=== PATIENT | female | born 1935 | race Caucasian/White ===

== ENCOUNTER 2019-04-13 05:22 | Emergency (ER) | payer MEDICARE ==
[~2019-04-13] VITALS: Ht 157.5 cm; Wt 74.8 kg
[2019-04-13 05:41] LABS: BASOPHILS ABSOLUTE AUTO 0.05 K/mm3 (0.00-0.23); BASOPHILS PERCENT AUTO 1 % (0-2); EOSINOPHILS ABSOLUTE AUTO 0.39 K/mm3 (0.00-0.68); EOSINOPHILS PERCENT AUTO 4 % (0-6); Hematocrit 46.5 % (33.0-51.0); Hemoglobin 15.8 g/dL (11.5-16.0); IMMATURE GRAN ABSOLUTE AUTO 0.01 K/mm3 (0.00-0.10); IMMATURE GRAN PERCENT AUTO 0 % (0-1); LYMPHOCYTES ABSOLUTE AUTO 3.09 K/mm3 (0.84-5.20); LYMPHOCYTES PERCENT AUTO 32 % (21-46); MONOCYTES ABSOLUTE AUTO 0.78 K/mm3 (0.16-1.47); MONOCYTES PERCENT AUTO 8 % (4-13); Mean Corpuscular HGB 31.5 pg (26.0-34.0); Mean Corpuscular Volume 93 fL (80-100); Mean Platelet Volume 11.3 fL (9.1-12.4); NEUTROPHILS PERCENT AUTO 56 % (41-73); Platelet Count 219 K/mm3 (150-400); RDW Coefficient Variation 13.2 % (11.7-14.2); RDW Standard Deviation 44.8 fL (35.1-46.3); Red Blood Cell Count 5.01 M/mm3 (3.80-5.20); White Blood Cell Count 9.82 K/mm3 (4.00-11.30)
[2019-04-13] MEDS ORDERED: METF500 PO (06:01)
[2019-04-13] MEDS ORDERED: GLIP10 PO (06:01)
[2019-04-13] MEDS ORDERED: AMLO10 PO (06:02)
[2019-04-13] MEDS ORDERED: METO50 PO (06:02)
[2019-04-13] MEDS ORDERED: LISI20 PO (06:02)
[2019-04-13 06:04] LABS: Alanine Aminotransfer (ALT/SGP 20 U/L (12-78); Albumin, Blood 3.9 g/dL (3.4-5.0); Alk Phos 98 U/L (50-136); Anion Gap 9 mmol/L (6-16); Aspartate Aminotrans (AST/SGOT 17 U/L (12-37); Bilirubin, Total 0.8 mg/dL (0.1-1.0); Blood Urea Nitrogen 25 mg/dL (8-24); CO2, Blood 21 mmol/L (21-32); Calcium, Blood 9.3 mg/dL (8.5-10.1); Chloride, Blood 111 mmol/L (98-108); Creatinine, Blood 0.93 mg/dL (0.40-1.00); Glomerular Filtration Rate >60 (60-); Glucose, Blood 148 mg/dL (70-99); Magnesium, Blood 2.3 mg/dL (1.6-2.4); Potassium, Blood 3.8 mmol/L (3.5-5.5); Sodium, Blood 141 mmol/L (136-145); Total Protein, Blood 7.9 g/dL (6.4-8.2)
[2019-04-13 06:14] LABS: International Normalized Ratio 0.96; Prothrombin Time Results 10.3 Sec (9.7-11.5)
[2019-04-13] MEDS ORDERED: LEVSOD100 PO (06:17)
== END 2019-04-13 10:56 | disposition short-term general hospital (02) ==
LOC: ER 05:22
PROVIDERS: Emergency Medicine
DX: I48.91 Unspecified atrial fibrillation (principal); R51 Headache
CPT/HCPCS: 51702; 70450; 70496; 70498; 71045; 80053; 83735; 83880; 84484; 85025; 85610; 85730; 93005; 93010; 96365-59; 96366-59; 96375-59; 96376-59; 99285-25; J1885; J7030; Q9967

== ENCOUNTER 2020-03-11 19:52 | Observation (INO) | payer MEDICARE ==
[~2020-03-11] VITALS: Ht 157.5 cm; Wt 80.6 kg
[~2020-03-11 19:52] MED LIST: AMLO10 PO; GLIP10 PO; LEVSOD100 PO; LISI20 PO; METF500 PO; METO50 PO
[2020-03-11 20:55] LABS: BASOPHILS ABSOLUTE AUTO 0.07 K/mm3 (0.00-0.23); BASOPHILS PERCENT AUTO 1 % (0-2); EOSINOPHILS ABSOLUTE AUTO 0.27 K/mm3 (0.00-0.68); EOSINOPHILS PERCENT AUTO 3 % (0-6); Hematocrit 44.3 % (33.0-51.0); Hemoglobin 14.4 g/dL (11.5-16.0); IMMATURE GRAN ABSOLUTE AUTO 0.02 K/mm3 (0.00-0.10); IMMATURE GRAN PERCENT AUTO 0 % (0-1); LYMPHOCYTES ABSOLUTE AUTO 2.92 K/mm3 (0.84-5.20); LYMPHOCYTES PERCENT AUTO 28 % (21-46); MONOCYTES ABSOLUTE AUTO 0.83 K/mm3 (0.16-1.47); MONOCYTES PERCENT AUTO 8 % (4-13); Mean Corpuscular HGB 30.3 pg (26.0-34.0); Mean Corpuscular HGB Conc 32.5 g/dL (31.5-36.5); Mean Corpuscular Volume 93 fL (80-100); Mean Platelet Volume 12.5 fL (9.1-12.4); NEUTROPHILS ABSOLUTE AUTO 6.41 K/mm3 (1.96-9.15); NEUTROPHILS PERCENT AUTO 61 % (41-73); Platelet Count 209 K/mm3 (150-400); RDW Coefficient Variation 12.9 % (11.7-14.2); RDW Standard Deviation 44.4 fL (35.1-46.3); Red Blood Cell Count 4.75 M/mm3 (3.80-5.20); White Blood Cell Count 10.52 K/mm3 (4.00-11.30)
[2020-03-11 21:09] LABS: Alanine Aminotransfer (ALT/SGP 22 U/L (12-78); Albumin, Blood 3.6 g/dL (3.4-5.0); Albumin/Globulin Ratio 0.9 (0.8-1.8); Alk Phos 125 U/L (50-136); Anion Gap 7 mmol/L (6-16); Aspartate Aminotrans (AST/SGOT 19 U/L (12-37); Blood Urea Nitrogen 24 mg/dL (8-24); Bun/Creatinine Ratio 35.1 (12.0-20.0); CO2, Blood 23 mmol/L (21-32); Chloride, Blood 112 mmol/L (98-108); Creatinine, Blood 0.68 mg/dL (0.40-1.00); Globulin, Blood 3.8 g/dL (2.2-4.0); Glomerular Filtration Rate >60 (60-); Glucose, Blood 177 mg/dL (70-99); Potassium, Blood 4.5 mmol/L (3.5-5.5); Sodium, Blood 142 mmol/L (136-145); Total Protein, Blood 7.4 g/dL (6.4-8.2); Troponin I <0.015 ng/mL (0.000-0.040)
--- NOTE | 2020-03-12 02:42 | NUR ---
PT A/O X4. DENIES CHEST PAIN. PT HAS BACK SPASMS 7/10 PAIN. HEATING PAD OFFERED BUT IT DID NOT HELP. DR. RUSHING ORDERED IV DIAZEMPAM BID PRN. WILL ADMINISTER ONCE PHARMACY VARIFIES.
[2020-03-12] MEDS ORDERED: JARDIANCE10 MG PO (03:06)
[2020-03-12] MEDS ORDERED: ATORVASTATIN CA20 MG PO (03:07)
[2020-03-12] MEDS ORDERED: DIAZ5 PO (03:08)
[2020-03-12] MEDS ORDERED: ELIQUIS5 MG PO (03:08)
--- NOTE | 2020-03-12 06:40 | NUR ---
OUTREACH CONSULTANT SUMMARY PT NEW ADMIT TO UNIT AT 0104. A/O X4, PLEASANT AND COOPERATIVE. PT DENIES CHEST PAIN, HOWEVER DOES HAVE BACK SPASMS. MEDICATED WITH DIAZEPAM IV WHICH PT STATED DID NOT HELP. FLEXIRL PO GIVEN. ALLOWING TIME FOR THIS MEDICATION TO WORK. VSS. PER TELE PT IS IN A. FIB IN AVG 52, PT HAS HX OF A. FIB. APPEARS TO BE RESTING IN BED WITH EYES CLOSED. INDEPENDENT IN ROOM. DENIES DIZZINESS, NAUSEA, SOB. ROOM AIR. WILL REPORT TO ONCOMING RN.
--- NOTE | 2020-03-12 18:26 | NUR ---
SHIFT SUMMARY PT CONTINUES TO HAVE BRADYCARDIA T/O SHIFT. RUNNING IN THE 40-50S. AT 1730 PT CHANGED TO AFIB IN THE 80-90S. PT HAS DENIED CP T/O SHIFT. C/O BACK SPASMS. PT STATES VIDOCIN IS TREATING HER PAIN WELL. FENTANYL ONLY NEEDED ONCE THIS AM. PT IND TO BATHROOM T/O SHIFT. DENIES DIZINESS T/O SHIFT. NO OTHER ACUTE CHANGES IN ASSESSMENT AT THIS TIME. VS REVIEWED. WILL CONTINUE TO MONITOR UNTIL TURNOVER IS COMPLETE.
--- NOTE | 2020-03-13 03:53 | NUR ---
SHIFT SUMMARY PATIENT HAD NO ACUTE CHANGES OBSERVED. AXOX 3 AND INDEPENDENT IN THE ROOM. PIV REMAINS INTACT, SPOUTER REPORTS A-FIB AVERAGE 88. VSS/AFEBRILE. DENIES CHEST PAIN, SOB, AND N/V. ROOM AIR. ABLE TO SLEEP T/O SHIFT. COOPERATIVE WITH CARE. CALL LIGHT IN REACH. BED IN LOWEST POSITION. WILL CONTINUE TO MONITOR UNTIL DAY SHIFT NURSE ASSUMES CARE.
--- NOTE | 2020-03-13 04:44 | NUR ---
TELEMETRY EVENT: A-FIB 140-150; PATIENT REPORTS UP TO BATHROOM INDEPENDENTLY. BACK DOWN TO A-FIB 112. BACK IN BED RESTING. CALL LIGHT IN REACH.
[2020-03-13 05:36] LABS: BASOPHILS ABSOLUTE AUTO 0.06 K/mm3 (0.00-0.23); BASOPHILS PERCENT AUTO 1 % (0-2); EOSINOPHILS ABSOLUTE AUTO 0.37 K/mm3 (0.00-0.68); EOSINOPHILS PERCENT AUTO 4 % (0-6); Hematocrit 47.6 % (33.0-51.0); Hemoglobin 15.2 g/dL (11.5-16.0); IMMATURE GRAN ABSOLUTE AUTO 0.02 K/mm3 (0.00-0.10); IMMATURE GRAN PERCENT AUTO 0 % (0-1); LYMPHOCYTES ABSOLUTE AUTO 2.55 K/mm3 (0.84-5.20); LYMPHOCYTES PERCENT AUTO 25 % (21-46); MONOCYTES PERCENT AUTO 8 % (4-13); Mean Corpuscular HGB 30.8 pg (26.0-34.0); Mean Corpuscular HGB Conc 31.9 g/dL (31.5-36.5); Mean Corpuscular Volume 97 fL (80-100); Mean Platelet Volume 12.4 fL (9.1-12.4); NEUTROPHILS ABSOLUTE AUTO 6.48 K/mm3 (1.96-9.15); NEUTROPHILS PERCENT AUTO 63 % (41-73); Platelet Count 185 K/mm3 (150-400); RDW Coefficient Variation 12.9 % (11.7-14.2); RDW Standard Deviation 45.9 fL (35.1-46.3); Red Blood Cell Count 4.93 M/mm3 (3.80-5.20); White Blood Cell Count 10.28 K/mm3 (4.00-11.30)
[2020-03-13 05:54] LABS: Anion Gap 8 mmol/L (6-16); Blood Urea Nitrogen 24 mg/dL (8-24); Bun/Creatinine Ratio 32.3 (12.0-20.0); CO2, Blood 21 mmol/L (21-32); Calcium, Blood 9.4 mg/dL (8.5-10.1); Chloride, Blood 113 mmol/L (98-108); Creatinine, Blood 0.74 mg/dL (0.40-1.00); Glomerular Filtration Rate >60 (60-); Glucose, Blood 128 mg/dL (70-99); Potassium, Blood 4.3 mmol/L (3.5-5.5); Sodium, Blood 142 mmol/L (136-145)
[2020-03-13] MEDS ORDERED: ACET325 PO (11:10)
[2020-03-13] MEDS ORDERED: ASPI81CH PO (11:11)
[2020-03-13] MEDS ORDERED: LIDOCAINE1 EAC1 TOP (11:12)
--- NOTE | 2020-03-13 12:12 | NUR ---
PT TO DISCHARGE HOME AND FOLLOW UP WITH [facility] ON MONDAY. NO NEW MEDS. PT EDUCATED REGARDING FOLLOW UP [facility] APPOINTMENT. IV REMOVED AND PT DRESSED SELF. TAKEN DOWN TO CARE BY STAFF AND DROVE HER HOME.
== END 2020-03-13 11:38 | disposition home or self-care (01) ==
LOC: ER 19:52 → MEDS 19:53 → ER 03-12 00:39 → UNDODEPER 03-12 01:01 → MEDS 03-12 01:05 → ENPENDDIS 03-13 10:59 → MEDS 03-13 11:38
PROVIDERS: Emergency Medicine; Family Medicine; ADMIT Internal Medicine
DX: R07.9 Chest pain, unspecified (principal); E11.8 Type 2 diabetes mellitus with unspecified complications; E03.9 Hypothyroidism, unspecified; I10 Essential (primary) hypertension; Z79.01 Long term (current) use of anticoagulants; R00.1 Bradycardia, unspecified; I44.7 Left bundle-branch block, unspecified; K44.9 Diaphragmatic hernia without obstruction or gangrene; Z79.84 Long term (current) use of oral hypoglycemic drugs; Z86.73 Personal history of transient ischemic attack (TIA), and cerebral infarction without residual deficits
CPT/HCPCS: 36415; 71275; 80048; 80053; 82947; 84484; 85025; 93005; 93010; 93306; 96374; 96375; 96376; 99285-25; A9270; G0378; J2405; J3010; J3360; Q9967

== ENCOUNTER 2023-08-31 12:15 | Inpatient (IN) | payer MEDICARE ==
[~2023-08-31] VITALS: Ht 152.4 cm; Wt 61.4 kg
[~2023-08-31 12:15] MED LIST changes: +ACET325 PO; -AMLO10 PO; +AMLO5 PO; +ASPI81CH PO; +ATORVASTATIN CA20 MG PO; +DIAZ5 PO; +ELIQUIS5 MG PO; +JARDIANCE10 MG PO; +LIDOCAINE1 EAC1 TOP; +METO25ER PO
[2023-08-31] MEDS ORDERED: Metoprolol Succinate 25 MG TABCR PO ONE (13:05)
[2023-08-31] MEDS ORDERED: Metoprolol Tartrate 1 MG/ML 5 ML VIAL IV ONE (13:05)
[2023-08-31] MEDS ORDERED: NS 500 ML IV SCH (13:10)
[2023-08-31 13:16] LABS: BASOPHILS ABSOLUTE AUTO 0.03 K/mm3 (0.00-0.23); BASOPHILS PERCENT AUTO 0 % (0-2); EOSINOPHILS ABSOLUTE AUTO 0.01 K/mm3 (0.00-0.68); EOSINOPHILS PERCENT AUTO 0 % (0-6); Hematocrit 39.4 % (33.0-51.0); IMMATURE GRAN ABSOLUTE AUTO 0.04 K/mm3 (0.00-0.10); IMMATURE GRAN PERCENT AUTO 0 % (0-1); LYMPHOCYTES ABSOLUTE AUTO 1.06 K/mm3 (0.84-5.20); LYMPHOCYTES PERCENT AUTO 9 % (21-46); MONOCYTES ABSOLUTE AUTO 0.63 K/mm3 (0.16-1.47); MONOCYTES PERCENT AUTO 6 % (4-13); Mean Corpuscular Volume 100 fL (80-100); NEUTROPHILS ABSOLUTE AUTO 9.46 K/mm3 (1.96-9.15); NEUTROPHILS PERCENT AUTO 84 % (41-73); Platelet Count 169 K/mm3 (150-400); RDW Coefficient Variation 12.7 % (11.7-14.2); RDW Standard Deviation 47.5 fL (35.1-46.3); Red Blood Cell Count 3.94 M/mm3 (3.80-5.20); White Blood Cell Count 11.23 K/mm3 (4.00-11.30)
[2023-08-31 13:26] LABS: Albumin, Blood 3.5 g/dL (3.4-5.0); Albumin/Globulin Ratio 1.1 (0.8-1.8); Bilirubin, Total 1.2 mg/dL (0.1-1.0); Bun/Creatinine Ratio 47.3 (12.0-20.0); Calcium, Blood 9.3 mg/dL (8.5-10.1); Creatinine, Blood 0.42 mg/dL (0.40-1.00); Globulin, Blood 3.1 g/dL (2.2-4.0); Total Protein, Blood 6.6 g/dL (6.4-8.2)
[2023-08-31] MEDS ORDERED: Metoprolol Tartrate 1 MG/ML 5 ML VIAL IV PRN (14:05)
[2023-08-31] MEDS ORDERED: Diltiazem HCl 5 MG / ML 5ML Vial IV ONE (15:00)
[2023-08-31] MEDS ORDERED: Lactated Ringer's 1,000 ML IV SCH (15:50)
[2023-08-31] MEDS ORDERED: NS 250 ML IV PRN (16:30)
[2023-08-31 17:28] VITALS: BP 106/69
[2023-08-31 18:00] VITALS: BP 98/60
[2023-08-31 18:15] VITALS: BP 101/64
--- NOTE | 2023-08-31 18:17 | NUR ---
PT IS A NEW ADMIT THIS EVENING. SHE CAME TO PCU ON A DILTIZEM GTT AT 15. HR HR WAS TOUCH DOWN TO THE 80'S AND I WAS ABLE TO TITRAITE HER TO 5MG/ML. BP STABLE. SP02 >90% ONRA. THE PT HAS NO COMPLAINTS, AND IS VERY PLEASENT AND COOPERATIVE. SHE DID COME TO PCU WITH A KHANNA, AND IT IS DRAINING PATENT TO GRAVITY. IT WAS PLACED IN THE ER PRIOR TO ARRIVING TO PCU03. THE PT DOES HAVE A DARK, FIRM, MASS NEAR HER RECTUM. DR. WEINER EXAMINED IT AT BEDSIDE; PHOTOS IN THE CHART. THE PT'S BUTTOCKS HAS A STAGE ON PRESSURE SORE AND A MEPILEX WAS PLACED. [facility] D/T DM2. FAMILY WAS AT BEDSIDE AND UPDATED ON CARE. SEE NOTES FOR UPDATES.
[2023-08-31] MEDS ORDERED: Diazepam 5 MG Tab PO PRN (18:45)
[2023-08-31] MEDS ORDERED: Metoprolol Succinate 25 MG TABCR PO SCH (21:00)
[2023-08-31] MEDS ORDERED: Insulin Human Lispro 100 Units/ML 3ML Syringe SC SCH (21:00)
[2023-08-31] MEDS ORDERED: Atorvastatin 40 MG Tab PO SCH (21:00)
[2023-09-01] VITALS (11 sets, daily range): BP systolic 90–122; BP diastolic 46–93
--- NOTE | 2023-09-01 05:29 | NUR ---
SHIFT SUMMARY: NO ACUTE CHANGES OVERNIGHT; VSS THROUGHOUT THE SHIFT. PT A&O X 4, PLEASANT AND COOPERATIVE WITH CARE; PT REQUIRING 1 PERSON ASSIST WITH Q2HR TURNS. PT ON RA, LUNGS CLEAR, SPO2 92<, AND DENIES SOB. AFIB ON MONITOR WITH HR 80-100'S; CARDIZEM GTT TURNED OFF THIS SHIFT. PT DENEIS CHEST PAIN OR ANY OTHER PAIN COMPLAINTS AT THIS TIME. PT TOLERATING PO INTAKE. KHANNA PATENT AND DRAINING TO GRAVITY; AROUND 300 ML OUTOUT, URINE YELLOW, CLEAR. NGO IN BED, HELPS WITH TURNS. PIV TO RFA AND LAC THAT ARE SALINE LOCKED. BED LOWERED, CALL LIGHT IN REACH.
[2023-09-01 05:36] LABS: BASOPHILS ABSOLUTE AUTO 0.05 K/mm3 (0.00-0.23); BASOPHILS PERCENT AUTO 1 % (0-2); EOSINOPHILS ABSOLUTE AUTO 0.14 K/mm3 (0.00-0.68); EOSINOPHILS PERCENT AUTO 1 % (0-6); Hematocrit 37.9 % (33.0-51.0); Hemoglobin 12.3 g/dL (11.5-16.0); IMMATURE GRAN ABSOLUTE AUTO 0.02 K/mm3 (0.00-0.10); IMMATURE GRAN PERCENT AUTO 0 % (0-1); LYMPHOCYTES ABSOLUTE AUTO 1.82 K/mm3 (0.84-5.20); LYMPHOCYTES PERCENT AUTO 17 % (21-46); MONOCYTES ABSOLUTE AUTO 0.83 K/mm3 (0.16-1.47); MONOCYTES PERCENT AUTO 8 % (4-13); Mean Corpuscular HGB 33.1 pg (26.0-34.0); Mean Corpuscular HGB Conc 32.5 g/dL (31.5-36.5); Mean Corpuscular Volume 102 fL (80-100); Mean Platelet Volume 12.4 fL (9.1-12.4); NEUTROPHILS ABSOLUTE AUTO 7.79 K/mm3 (1.96-9.15); NEUTROPHILS PERCENT AUTO 73 % (41-73); Platelet Count 154 K/mm3 (150-400); RDW Standard Deviation 48.8 fL (35.1-46.3); Red Blood Cell Count 3.72 M/mm3 (3.80-5.20); White Blood Cell Count 10.65 K/mm3 (4.00-11.30)
[2023-09-01 06:21] LABS: Albumin, Blood 2.9 g/dL (3.4-5.0); Albumin/Globulin Ratio 1.1 (0.8-1.8); Bilirubin, Total 1.4 mg/dL (0.1-1.0); Bun/Creatinine Ratio 47.4 (12.0-20.0); Calcium, Blood 8.9 mg/dL (8.5-10.1); Creatinine, Blood 0.51 mg/dL (0.40-1.00); Globulin, Blood 2.6 g/dL (2.2-4.0); Potassium, Blood 3.6 mmol/L (3.5-5.5); Total Protein, Blood 5.5 g/dL (6.4-8.2)
[2023-09-01] MEDS ORDERED: AmLODIPine Besylate 5 MG Tab PO SCH (09:00)
[2023-09-01] MEDS ORDERED: Lisinopril 20 MG Tab PO SCH (09:00)
[2023-09-01] MEDS ORDERED: Levothyroxine Sodium 0.15 MG Tab PO SCH (09:00)
[2023-09-01] MEDS ORDERED: NS 1,000 ML IV ONE (10:15)
[2023-09-01] MEDS ORDERED: Potassium Chloride 20 MEQ TabCR PO ONE (10:15)
--- NOTE | 2023-09-01 14:45 | NUR ---
DR. ROOT ROUNDED AT ABOUT 0930. SEE NEW ORDER FOR IV FLUIDS, HOME DOSE METOPROLOL AND ORAL POTASSIUM.
--- NOTE | 2023-09-01 17:03 | NUR ---
SUMMARY: PT ADMITTED WITH AFIB, RVR. PT A/O, VSS TONIGHT. HR CURRENTLY LOW 100'S, A FLUTTER.
[2023-09-01] MEDS ORDERED: NS 1,000 ML IV SCH ×3 (17:25→18:55)
--- NOTE | 2023-09-01 18:37 | NUR ---
AT ABOUT 1714 PT BP 90/72 AND HR 134. PT ASYMPTOMATIC. DR. ROOT NOTIFIED, SEE NEW ORDER FOR NS AT 100ML/HR. DR. ROOT ALSO INSTRUCTED NOT TO GIVE IV LOPRESSOR AT THIS TIME. PT TO RECEIVE EVENING PO DOSE OF TOPROL XL.
--- NOTE | 2023-09-01 18:43 | NUR ---
SUMMARY: PT ADMITTED FOR AFIB, RVR. A/O TODAY. 1L NS INFUSED TODAY, KHANNA DC'D AND PT IS VOIDING. UP WITH SBA, FWW. PT SAT UP FOR EACH MEAL TODAY. CURRENT HR 114, A FLUTTER. SEE PREVIOUS NOTE. PT HAS DENIED CP, SOB TODAY. BLOOD SUGARS STABLE. REPORT PASSED TO SAM MATT.
[2023-09-01] MEDS ORDERED: Metoprolol Succinate 25 MG TABCR PO SCH (21:00)
[2023-09-02] VITALS: BP 103/47
[2023-09-02 00:14] VITALS: BP 124/57
[2023-09-02 03:50] VITALS: BP 125/65
[2023-09-02 04:18] LABS: BASOPHILS ABSOLUTE AUTO 0.04 K/mm3 (0.00-0.23); BASOPHILS PERCENT AUTO 1 % (0-2); EOSINOPHILS ABSOLUTE AUTO 0.24 K/mm3 (0.00-0.68); EOSINOPHILS PERCENT AUTO 4 % (0-6); Hematocrit 36.9 % (33.0-51.0); Hemoglobin 11.9 g/dL (11.5-16.0); IMMATURE GRAN ABSOLUTE AUTO 0.02 K/mm3 (0.00-0.10); IMMATURE GRAN PERCENT AUTO 0 % (0-1); LYMPHOCYTES ABSOLUTE AUTO 1.66 K/mm3 (0.84-5.20); LYMPHOCYTES PERCENT AUTO 24 % (21-46); MONOCYTES ABSOLUTE AUTO 0.67 K/mm3 (0.16-1.47); MONOCYTES PERCENT AUTO 10 % (4-13); Mean Corpuscular HGB 33.6 pg (26.0-34.0); Mean Corpuscular HGB Conc 32.2 g/dL (31.5-36.5); Mean Corpuscular Volume 104 fL (80-100); NEUTROPHILS ABSOLUTE AUTO 4.31 K/mm3 (1.96-9.15); NEUTROPHILS PERCENT AUTO 62 % (41-73); Platelet Count 132 K/mm3 (150-400); RDW Coefficient Variation 13.1 % (11.7-14.2); RDW Standard Deviation 49.9 fL (35.1-46.3); Red Blood Cell Count 3.54 M/mm3 (3.80-5.20); White Blood Cell Count 6.94 K/mm3 (4.00-11.30)
[2023-09-02 04:49] LABS: Albumin, Blood 2.8 g/dL (3.4-5.0); Bun/Creatinine Ratio 47.3 (12.0-20.0); Calcium, Blood 8.5 mg/dL (8.5-10.1); Creatinine, Blood 0.51 mg/dL (0.40-1.00); Globulin, Blood 2.8 g/dL (2.2-4.0); Potassium, Blood 3.8 mmol/L (3.5-5.5); Total Protein, Blood 5.6 g/dL (6.4-8.2)
--- NOTE | 2023-09-02 05:00 | NUR ---
END OF SHIFT NOTE: NO ACUTE OVERNIGHT EVENTS. PT A/OX4 W/ BRIEF EPISODES OF CONFUSION IMMEDIATELY UPON WAKING. ABLE TO BE REORIENTED EASILY. VSS. HR 110-120'S AT START OF SHIFT, DOWN TO 70-90'S THIS AM. BP STABLE, MAP >65. SPO2 >90% ON RA WHILE AWAKE, 2-3L VIA NC WHILE ASLEEP. UP TO BSC TO VOID W/ 1P ASSIST. ASSISTED W/ REPOSITIONING T/O SHIFT. NO OTHER NEEDS AT THIS TIME. CALL LIGHT IN REACH. WILL REPORT TO ONCOMING RN.
[2023-09-02 07:41] VITALS: BP 117/76
[2023-09-02 12:22] VITALS: BP 127/103
--- NOTE | 2023-09-02 12:31 | NUR ---
discharge summary Pt a&ox4. vss. Pt denies pain. Discharge recommendations reviewed w/ pt and family. Discharge medication changes reviewed w/ pt and family. Family verbalized understanding. Medications faxed to [email or web address] per pt request. Iv's removed. Pt helped dress. Pt wheeled w/ belongings to family's private vehicle.
== END 2023-09-02 12:20 | disposition home health service (06) | DRG 309 ==
LOC: ER 12:15 → PCU 12:16
PROVIDERS: Hospitalist; Internal Medicine; Student in an Organized Health Care Education/Training Program; ADMIT Family Medicine
DX: I48.19 Other persistent atrial fibrillation (principal); I69.954 Hemiplegia and hemiparesis following unspecified cerebrovascular disease affecting left non-dominant side; M62.82 Rhabdomyolysis; I48.92 Unspecified atrial flutter; W18.30XA Fall on same level, unspecified, initial encounter; I10 Essential (primary) hypertension; E78.5 Hyperlipidemia, unspecified; Z79.01 Long term (current) use of anticoagulants; Z79.84 Long term (current) use of oral hypoglycemic drugs; Z79.890 Hormone replacement therapy; Z79.899 Other long term (current) drug therapy
CPT/HCPCS: 36415; 51702; 70450; 71045; 73502; 80053; 82550; 82947; 83735; 85025; 93005; 93010; 96361; 96365; 96366; 96375; 96376; 97161; 97530; 99285-25; A9270; G0378; J7030; J7120

== ENCOUNTER 2023-09-24 13:20 | Inpatient (IN) | payer MEDICARE ==
[~2023-09-24] VITALS: Ht 157.5 cm; Wt 59.9 kg
[~2023-09-24 13:20] MED LIST changes: +ATOR40TA PO; -ATORVASTATIN CA20 MG PO; +GLUCOPHAGE1000 M1 PO; -LEVSOD100 PO; +LEVSOD150 PO; -METF500 PO
[2023-09-24] MEDS ORDERED: Diltiazem HCl 5 MG / ML 5ML Vial IV ONE (14:15)
[2023-09-24] MEDS ORDERED: CARVEDILOL6.25 MG PO (14:21)
[2023-09-24 15:17] LABS: BASOPHILS ABSOLUTE AUTO 0.03 K/mm3 (0.00-0.23); BASOPHILS PERCENT AUTO 0 % (0-2); EOSINOPHILS ABSOLUTE AUTO 0.09 K/mm3 (0.00-0.68); EOSINOPHILS PERCENT AUTO 1 % (0-6); Hematocrit 40.2 % (33.0-51.0); Hemoglobin 13.1 g/dL (11.5-16.0); IMMATURE GRAN ABSOLUTE AUTO 0.02 K/mm3 (0.00-0.10); IMMATURE GRAN PERCENT AUTO 0 % (0-1); LYMPHOCYTES ABSOLUTE AUTO 1.55 K/mm3 (0.84-5.20); LYMPHOCYTES PERCENT AUTO 21 % (21-46); MONOCYTES ABSOLUTE AUTO 0.44 K/mm3 (0.16-1.47); MONOCYTES PERCENT AUTO 6 % (4-13); Mean Corpuscular HGB Conc 32.6 g/dL (31.5-36.5); Mean Corpuscular Volume 101 fL (80-100); Mean Platelet Volume 11.1 fL (9.1-12.4); NEUTROPHILS ABSOLUTE AUTO 5.18 K/mm3 (1.96-9.15); NEUTROPHILS PERCENT AUTO 71 % (41-73); Platelet Count 180 K/mm3 (150-400); RDW Coefficient Variation 13.1 % (11.7-14.2); RDW Standard Deviation 49.1 fL (35.1-46.3); Red Blood Cell Count 3.97 M/mm3 (3.80-5.20); White Blood Cell Count 7.31 K/mm3 (4.00-11.30)
[2023-09-24 15:27] LABS: Influenza A, PCR NEGATIVE (NEGATIVE); Influenza B, PCR NEGATIVE (NEGATIVE); Resp Syncytial Virus, PCR NEGATIVE (NEGATIVE); SARS-Cov-2 (COVID-19) PCR, MMC NEGATIVE (NEGATIVE)
[2023-09-24 15:36] LABS: Magnesium, Blood 1.8 mg/dL (1.6-2.4); Thyroid Stimulating Hormone 11.6 uIU/mL (0.360-4.800)
[2023-09-24 15:37] LABS: Albumin, Blood 3.3 g/dL (3.4-5.0); Albumin/Globulin Ratio 1.1 (0.8-1.8); Bilirubin, Total 0.9 mg/dL (0.1-1.0); Bun/Creatinine Ratio 46.1 (12.0-20.0); Calcium, Blood 9.2 mg/dL (8.5-10.1); Creatinine, Blood 0.48 mg/dL (0.40-1.00); Globulin, Blood 3.1 g/dL (2.2-4.0); Potassium, Blood 4.2 mmol/L (3.5-5.5); Total Protein, Blood 6.4 g/dL (6.4-8.2)
[2023-09-24] MEDS ORDERED: Acetaminophen 650 MG Supp PR PRN (16:15)
[2023-09-24] MEDS ORDERED: Ondansetron 4 MG TAB PO PRN (16:20)
[2023-09-24] MEDS ORDERED: Bisacodyl 10 MG Supp PR PRN (16:20)
[2023-09-24] MEDS ORDERED: Magnesium Hydroxide Conc 10 ML UDC PO PRN (16:20)
[2023-09-24] MEDS ORDERED: Zolpidem Tartrate 5 MG Tab PO PRN (16:20)
[2023-09-24] MEDS ORDERED: Insulin Human Lispro 100 Units/ML 3ML Syringe SC SCH (16:30)
[2023-09-24] MEDS ORDERED: HydrALAZINE HCl 20 MG / ML 1ML Vial IV PRN (16:45)
[2023-09-24] MEDS ORDERED: Carvedilol 6.25 MG Tab PO SCH (17:00)
[2023-09-24 18:13] VITALS: BP 126/68
--- NOTE | 2023-09-24 18:56 | NUR ---
ADMISSION: PT IS A NEW ADMIT, ARRIVING TO UNIT AT APPROX 1815. PT IS ASSISTED F/GURNEY TO BED VIA SLIDE SHEET, ASSISTED W/CHANGING INTO GOWN, PICTURE OBTAINED OF GROWTH NEAR RECTUM (PT STATES THIS WAS EVALUATED ON HER RECENT ADMISSION AND THAT SHE WAS SUPPOSED TO SEE HER PCP FOR THIS CONCERN THIS COMING WEEK), PICTURE PLACED IN CHART. PT IS A&Ox4, DENIES SOB, O2 SATS >93% ON RA, AFIB ON MONITOR W/RATE 70s-90s AT REST. PT PROVIDED W/FOOD AND DRINKS, CALL LIGHT IN REACH.
[2023-09-24 20:00] VITALS: BP 121/60; BP 123/78
[2023-09-24] MEDS ORDERED: Apixaban 5 MG Tab PO SCH (21:00)
[2023-09-24] MEDS ORDERED: Lactobacil 2-S.Thermo-Bifido 1 1 Cap PO SCH (21:00)
--- NOTE | 2023-09-24 22:37 | NUR ---
ASSUMPTION OF CARE THIS RN ASSUMED CARE OF PT AT 1900, REPORT FROM ITZEL MATT. PT A&O X4, PLEASANT AND COOPERATIVE WITH CARE. PT WITH CHRONIC L SIDE DEFICIT D/T HX OF CVA. PT ABLE TO PARTICIPATE IN CARE AND ASSIST WITH TURNS, ALTHOUGH IS WEAK. VSS; SBP 120, HRR AFIB IN 80'S - 90'S; INCREASING TO 100'S 1TEENS WITH ACTIVITY. PT ON RA, SPO2 92 - 95%, RR WNL, AFEBRILE. PT DENIES CP/PRESSURE, SOB, DIZZINESS, PALPITATIONS, N/V/D. PT DENIES GENERAL PAIN. PT NOTED WITH +2 EDEMA BLE, REPORTS HER LEGS FEEL "LIKE LEAD". PT UP TO BSC 2 PERSON ASSIST WITH FWW. NO GI/ CONCERNS. SKIN OVERALL INTACT. CALL LIGHT IN REACH, ABLE TO MAKE NEEDS KNOWN.
[2023-09-25] VITALS (7 sets, daily range): BP systolic 96–128; BP diastolic 48–78
[2023-09-25] MEDS ORDERED: Acetaminophen 325 MG TABLET PO PRN (00:51)
[2023-09-25 04:19] LABS: Hemoglobin 12.9 g/dL (11.5-16.0)
[2023-09-25 04:44] LABS: Bun/Creatinine Ratio 42.7 (12.0-20.0); Calcium, Blood 8.9 mg/dL (8.5-10.1); Creatinine, Blood 0.47 mg/dL (0.40-1.00); Magnesium, Blood 1.8 mg/dL (1.6-2.4); Potassium, Blood 4.2 mmol/L (3.5-5.5)
--- NOTE | 2023-09-25 05:43 | NUR ---
SHIFT SUMMARY PT REMAINS A&O X4. SEE PREVIOUS ASSUMPTION OF CARE NOTE FOR OTHER DETAILS. VS; SBP 120'S, HRR AFIB IN 80 - 90'S AT REST, 100 - 1TEENS WITH MINIMAL ACTIVITY, INCREASING TO HIGH 140'S WITH SHORT AMBULATION TO BSC. PT REPORTS ONE EPISODE OF "DIZZINESS/LIGHTHEADNESS" WITH HR OF 147 OTHERWISE DENIES SX. PT VERY PAINFUL TO THE RECTUM, WITH POSSIBLE HEMORRHOID, WHICH IS DARK BLACK IN COLOR AND DOES BLEED DURING RESTROOM USE AND WIPING. PICTURE IN CHART. PT REPORTS WAS "SUPPOSE TO HAVE A FOLLOW UP APPOINTMENT FOR THIS SOMETIME THIS WEEK". REPOSIIONING TO HELP RELIEVE PRESSURE AND TYLENOL PER MAR WITH MODERATE RELIEF. PT 2 PERSON ASSIST WITH FWW TO BSC. NO BM THIS SHIFT. AT HS MEDICATION PASS, PT HAD DIFFICULTY WITH LARGER PILL TAKEN WITH WATER. DID MUCH BETTER WITH PILLS IN APPLESAUCE. CALL LIGHT IN REACH AND PT ABLE TO MAKE NEEDS KNOWN. WILL UPDATE ONCOMING VERNELL
[2023-09-25] MEDS ORDERED: Levothyroxine Sodium 0.15 MG Tab PO SCH (06:00)
[2023-09-25] MEDS ORDERED: Carvedilol 6.25 MG Tab PO SCH (08:20)
[2023-09-25] MEDS ORDERED: Furosemide 10 MG / ML 2ML Vial IV SCH (09:00)
[2023-09-25] MEDS ORDERED: Famotidine 20 MG Tab PO SCH (09:00)
[2023-09-25] MEDS ORDERED: Atorvastatin 40 MG Tab PO SCH (09:00)
[2023-09-25] MEDS ORDERED: Enoxaparin 40 MG/0.4 ML SYR SC SCH (09:00)
--- NOTE | 2023-09-25 18:16 | NUR ---
SHIFT SUMMARY: PT HAS BEEN A&Ox4, COOPERATIVE W/CARE, ABLE TO MAKE NEEDS KNOWN. AT THE BEGINNING OF THE SHIFT, PT WAS REPORTING FEELING SOB WHEN SITTING IN BEDSIDE CHAIR OR GETTING UP OOB. THE DAY PROGRESSED, PT REPORTED IMPROVED SOB IN ALL POSITIONS. O2 SATS MAINTAINED >95% ON RA. HR HAS ALSO IMPROVED T/OUT THIS SHIFT. THIS MORNING, PT's HR TREND WAS: 70s-90s AT REST, 90s-110s WHEN SITTING IN CHAIR, 120-140s WHEN UP. THIS AFTERNOON, PT's HR TREND: 60s-70s AT REST, 70s WHEN SITTING, 70s WHEN WORKING WITH THERAPY. PT RESTING IN BED, CALL LIGHT IN REACH, WILL CONTINUE TO MONITOR AND TREAT ACCORDINGLY UNTIL CHANGE OF SHIFT.
[2023-09-26] VITALS (8 sets, daily range): BP systolic 85–148; BP diastolic 38–72
[2023-09-26 04:12] LABS: Hematocrit 36.4 % (33.0-51.0)
[2023-09-26 04:34] LABS: Magnesium, Blood 1.9 mg/dL (1.6-2.4)
[2023-09-26 04:35] LABS: Bun/Creatinine Ratio 38.3 (12.0-20.0); Creatinine, Blood 0.55 mg/dL (0.40-1.00); Phosphorus, Blood 3.5 mg/dL (2.5-4.9); Potassium, Blood 3.8 mmol/L (3.5-5.5)
--- NOTE | 2023-09-26 06:06 | NUR ---
SHIFT SUMMARY PT A&O X4, PLEASANT AND COOPERATIVE WITH CARE. VSS; A PACED IN 60'S, SBP 100 - 130'S, DBP 38 - 65, AFEBRILE, SPO2 GREATER THAN 94% WHILE AWAKE. PT NEEDING 1 - 2 LPM WHILE ASLEEP D/T SPO2 DECREASING TO 80'S. PT USING BSC 2 PERSON ASSIST WITH FWW BUT PT WITH WEAKNESS NOTED BUT IS IMPROVING. PT WITH MILD L SIDE DEFICIT DUE HX OF CVA. PT HAVING MORE EPISODES OF DIZZINESS/LIGHTHEADNESS THIS SHIFT. AROUND 0400 PT APPEARED PALE, SPACING OFF, STATES "FELT VERY HOT", AND REPORTED HAVING CP AND PRESSURE OVER THE LEFT BREAST. EKG COMPLETED, VSS, RESIDENT NOTIFIED - ORDERS FOR PACER INTERROGATION IN AM AND RESIDENT TO PUT IN ORDER FOR ECHO. NO OTHER ORDERS. AM LABS OKAY. THIS RN BACK IN TO CHECK IN ON PT AND SHE APPEARED TO BE DOING A LITTLE BETTER. PT STATES CP/PRESSURE RESIDED SOME BUT FEELS "VERY TIRED AND DIZZY". CONTINUES TO APPEAR PALE AND PUNY. WILL UPDATE ONCOMING RN. PT USING BSC 2 PERSON ASSIST WITH FWW, GROWTH ON RECTUM CONTINUES TO BLEED AND CAUSE PT "ALOT OF PAIN". REPOSITIONING, MEDICTION PER HARMAN AND REST TO ALLEVIATE PAIN. PT CONTINUES TO BE UNCOMFORTABLE DESPITE INTERVENTIONS. CALL LIGHT IN REACH, WILL UPDATE ONCOMING RN.
[2023-09-26] MEDS ORDERED: Carvedilol 6.25 MG Tab PO SCH (08:30)
--- NOTE | 2023-09-26 15:55 | NUR ---
TRANSFER TO 336 PT A&Ox4, CALLS AND COMMUNICATES NEEDS APPROPRIATELY. BP SOFT AT START OF SHIFT, BP WNL DURING NOON AND AFTERNOON VITAL CHECKS. PACED 60's, DENIES CP/PRESSURE. SpO2> 92% RA, DENIES SOB. 1 ASSIST WITH FWW TO BATHROOM, CONTINENT OF URINE AND BOWEL. REPORT OF PAIN IN LEFT SHOULDER THAT HAS BOTHERED HER SINCE HAVING PACER PLACED 2 YEARS AGO, MEDICATED PER EMAR. REPORT GIEVN TO MEDICAL FLOOR RN. PT TRANSFERED VIA WHEELCHAIR WITH ALL BELONGINGS AT APPROXIMATELY 1545.
--- NOTE | 2023-09-26 17:28 | NUR ---
PT ARRIVED TO ROOM @ 1555 VIA WHEELCHAIR. PT USED BSC UPON ARRIVAL. PROVIDED WATER AND SUGAR FREE PUDDING. NO NEW SKIN ISSUES NOTED. PT RESTING COMFORTABLY AT THIS TIME. PT ON TELE WITH A PACED RHYHTM OF 63 BPM.
[2023-09-27] VITALS (7 sets, daily range): BP systolic 109–159; BP diastolic 41–145
[2023-09-27 05:41] LABS: BASOPHILS ABSOLUTE AUTO 0.03 K/mm3 (0.00-0.23); BASOPHILS PERCENT AUTO 1 % (0-2); EOSINOPHILS ABSOLUTE AUTO 0.12 K/mm3 (0.00-0.68); EOSINOPHILS PERCENT AUTO 2 % (0-6); Hematocrit 38.3 % (33.0-51.0); Hemoglobin 12.4 g/dL (11.5-16.0); IMMATURE GRAN ABSOLUTE AUTO 0.01 K/mm3 (0.00-0.10); IMMATURE GRAN PERCENT AUTO 0 % (0-1); LYMPHOCYTES ABSOLUTE AUTO 1.73 K/mm3 (0.84-5.20); LYMPHOCYTES PERCENT AUTO 28 % (21-46); MONOCYTES ABSOLUTE AUTO 0.49 K/mm3 (0.16-1.47); MONOCYTES PERCENT AUTO 8 % (4-13); Mean Corpuscular HGB 33.2 pg (26.0-34.0); Mean Corpuscular HGB Conc 32.4 g/dL (31.5-36.5); Mean Corpuscular Volume 102 fL (80-100); Mean Platelet Volume 11.2 fL (9.1-12.4); NEUTROPHILS ABSOLUTE AUTO 3.74 K/mm3 (1.96-9.15); NEUTROPHILS PERCENT AUTO 61 % (41-73); Platelet Count 159 K/mm3 (150-400); RDW Coefficient Variation 13.2 % (11.7-14.2); RDW Standard Deviation 49.4 fL (35.1-46.3); Red Blood Cell Count 3.74 M/mm3 (3.80-5.20); White Blood Cell Count 6.12 K/mm3 (4.00-11.30)
[2023-09-27 06:08] LABS: Albumin, Blood 3.1 g/dL (3.4-5.0); Albumin/Globulin Ratio 1.1 (0.8-1.8); Bilirubin, Total 0.7 mg/dL (0.1-1.0); Bun/Creatinine Ratio 38.7 (12.0-20.0); Calcium, Blood 8.8 mg/dL (8.5-10.1); Creatinine, Blood 0.49 mg/dL (0.40-1.00); Globulin, Blood 2.7 g/dL (2.2-4.0); Magnesium, Blood 2.1 mg/dL (1.6-2.4); Phosphorus, Blood 2.5 mg/dL (2.5-4.9); Potassium, Blood 4.3 mmol/L (3.5-5.5); Total Protein, Blood 5.8 g/dL (6.4-8.2)
--- NOTE | 2023-09-27 06:46 | NUR ---
SHIFT SUMMARY: PATIENT HAS NO BM SINCE SAT. PRN MOM WAS GIVEN, AWAITING RESULTS. PATIENT REPORTS SLEEPING WELL. TELEMETRY HAS BEEN PACED IN THE 60'S. PACEMAKER INTEROGATION WILL BE DONE TODAY PER MD ORDER.
[2023-09-27] MEDS ORDERED: Furosemide 20 MG Tab PO SCH (09:00)
[2023-09-27] MEDS ORDERED: GLIP10ER PO (11:05)
[2023-09-27] MEDS ORDERED: Metoprolol Tartrate 1 MG/ML 5 ML VIAL IV ONE ×2 (16:35→17:50)
--- NOTE | 2023-09-27 18:17 | NUR ---
PT IS AOX4 AND COOPERATIVE OF CARE. PT IS A ONE PERSON ASSIST TO BEDSIDE COMMODE WITH WALKER. PT IS ABLE TO MAKE HER NEEDS KNOWN. PT STARTED TO HAVE RANDOM HR SPIKES OF 130 WHEN SHE STOOD UP AND USED COMMODE TODAY, BUT WHEN SEATED BACK TO BED HR DECREASED TO PACED 60. AROUND 1630 PT'S HR WENT UP TO 130s AND BEGAN TO SUSTAIN TELE WAS CALLING AND GIVING UPDATES. RESTING BACK IN BED DID NOT FIX HR. THIS FIELD PROJECT MANAGER HAD CHARGE NURSE TERRANCE CALL DR TEE OF HR. DR HERNANDEZ ADDED MEDICATION TO EMAR. DOSE WAS GIVEN AND HR LOOK TO BE SLOWLY RESPONDING THIS WAS AT 1641. PLAN WAS MADE TO GIVE ORAL BP MED SHOWING DUE ON EMAR THIS WAS GIVEN AT 1700. 40 MIN LATER TELE CALLED AGAIN HR WAS AGAIN GOING UP TO 130s. DR HERNANDEZ WAS NOTIFIED AND SHE ADDED ANOTHER BP MED TO EMAR AND IT WAS GIVEN AT 1747. WILL CONTINUE TO MONITOR VERY CLOSELY. CALL LIGHT WITHIN REACH.
[2023-09-28 05:48] LABS: Hematocrit 39.7 % (33.0-51.0); Hemoglobin 12.9 g/dL (11.5-16.0)
--- NOTE | 2023-09-28 06:01 | NUR ---
SHIFT SUMMARY PATIENT ADJUST IN BED FOR COMFORT. HS MEDICATION GIVEN. TEL REPORTS A PACE OF 90. PATIENT IS COOPERATIVE WITH CARE. HS MEDICATION, HEART RATE WAS WI GIVEN AND SHE APPEARED TO SLEEP THROUGH THE NIGHT. BED IN LOW POSITION, CALL LIGHT WITHIN REACH, RAILS TIMES 2.
[2023-09-28 06:14] LABS: Bun/Creatinine Ratio 37.1 (12.0-20.0); Calcium, Blood 8.9 mg/dL (8.5-10.1); Creatinine, Blood 0.46 mg/dL (0.40-1.00); Phosphorus, Blood 2.4 mg/dL (2.5-4.9); Potassium, Blood 4.1 mmol/L (3.5-5.5)
[2023-09-28 07:14] VITALS: BP 143/101
[2023-09-28] MEDS ORDERED: Carvedilol 6.25 MG Tab PO SCH (08:00)
--- NOTE | 2023-09-28 09:05 | NUR ---
PT HR SUSTAINED AROUND 140bpm FOR THE DURATION OF HER EATING BREAKFAST AND SITTING UP. RETURNED BACK TO 110s AFTER LYING BACK DOWN.
--- NOTE | 2023-09-28 10:49 | NUR ---
Telephone report from VERNELL Ang. Pt to come to U 16 at this time.
--- NOTE | 2023-09-28 10:49 | NUR ---
PATIENT WITH C/O SOME SLIGHT CHEST DISCOMFORT AND WEAKNESS UPON STANDING. CALL TO DR. HERNANDEZ: WILL TRANSFER TO PCU. REPORT TO KRISTINE IN PCU. PT WILL GO TO ROOM PCU 16.
[2023-09-28 11:33] VITALS: BP 96/79
[2023-09-28 12:29] VITALS: BP 100/74
--- NOTE | 2023-09-28 13:06 | NUR ---
Assisted up to void on BSC. Mild dyspnea and weakness noted. Fair toleration of the activity. Heart rate between 100 and 119 bpm, amiodarone gtt ongoing.
--- NOTE | 2023-09-28 13:49 | NUR ---
The pt since initial assessment in PCU has denied chest pain and dyspnea at rest. Heart rate 120-130 atrial flutter at 1130 am noted on monitor, now with amiodarone gtt the heart rate controlled 100 bpm or less at rest, 110s with activity to BSC. Denies chest pain with activity as well. Blood pressure low, but pt denies dizzyness/lightheadedness. Last check systolic pressure was 100mmHg. She states that she has had constipation, was given MOM and "stool softener" a few days ago, without results. States no BM since last Monday. Visible external hemorrhoid noted, scant bleeding, but pt states not painful. She has urinary incontinence she says since this admission. Also c/o tenderness on her "tailbone". Noted redness over the sacral / coccyx area. Protective ointment applied and pt is turning side to side to relieve the pressure. Positioned on her left side after use of BSC. Pt was instructed to call if she has any discomfort, difficulty breathing or any problem noted with her IV sites.
[2023-09-28 16:00] VITALS: BP 142/74
[2023-09-28 19:31] VITALS: BP 107/62
[2023-09-28] MEDS ORDERED: Docusate Sodium 100 MG Cap PO PRN (22:15)
[2023-09-28 23:06] VITALS: BP 115/50
[2023-09-29] VITALS (8 sets, daily range): BP systolic 126–188; BP diastolic 46–66
[2023-09-29 03:56] LABS: Hematocrit 36.1 % (33.0-51.0); Hemoglobin 11.7 g/dL (11.5-16.0); Mean Corpuscular HGB Conc 32.4 g/dL (31.5-36.5); Mean Corpuscular Volume 102 fL (80-100); Mean Platelet Volume 11.8 fL (9.1-12.4); Platelet Count 155 K/mm3 (150-400); RDW Coefficient Variation 13.2 % (11.7-14.2); RDW Standard Deviation 49.6 fL (35.1-46.3); Red Blood Cell Count 3.55 M/mm3 (3.80-5.20); White Blood Cell Count 6.83 K/mm3 (4.00-11.30)
[2023-09-29 04:21] LABS: Bun/Creatinine Ratio 42.8 (12.0-20.0); Calcium, Blood 8.9 mg/dL (8.5-10.1); Creatinine, Blood 0.58 mg/dL (0.40-1.00); Magnesium, Blood 1.9 mg/dL (1.6-2.4); Potassium, Blood 3.9 mmol/L (3.5-5.5)
--- NOTE | 2023-09-29 06:27 | NUR ---
1915 Assumed care of pt, bedside report completed. Shift plan of care reviewed with pt, all questions answered. Pt with uneventful shift. HR remained well controlled in 60 bpm, atrial paced. VSS, cont pulse oximetry with pt desatting occasionally at night, appears to be undiagnosed apnea, self limiting. Pt reports weakness and difficulty moving around, but also reports that has been her baseline the last several months. Denies pain. Is optomistic that Amio gtt is working. Please see full assessment for additional details. No furhter comlaints or concerns at this time, will continue to monitor.
--- NOTE | 2023-09-29 08:52 | NUR ---
Plan: complete amiodarone IV loading, start Toprol XL for heart failure and dysrhthmia. If pt does not tolerate, will go to oral amiodarone. Pt is agreeable with the plan.
--- NOTE | 2023-09-29 08:52 | NUR ---
Dr. Guillermo here to see the patient.
[2023-09-29] MEDS ORDERED: Metoprolol Succinate 25 MG TABCR PO SCH ×3 (09:00→21:00)
[2023-09-29] MEDS ORDERED: Furosemide 20 MG Tab PO SCH (09:00)
[2023-09-29] MEDS ORDERED: Docusate Sodium 100 MG Cap PO PRN (09:05)
--- NOTE | 2023-09-29 09:13 | NUR ---
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 Area 3 cm x 4 cm. called pharmacist Eliz as well as lithopone charger Allison. Warm dry compress to the area as advised, pt states that it is starting to feel better. PO meds given as well as rectal suppository.
[2023-09-29] MEDS ORDERED: Polyethylene Glycol 3350 17 gm PO SCH (12:50)
[2023-09-29] MEDS ORDERED: Hyaluronidase 150 UNIT/ML Vial SC SCH (13:30)
--- NOTE | 2023-09-29 13:32 | NUR ---
Warm dry compressess applied every 30-60 minutes to the right wrist area of infiltration of amiodarone, but pt continues to complain of pain at the site. It is more pink now than before. Call to Dr. Guillermo regarding this and order received for hyaluronidase subcutaneous for relief. Pt was assisted up to use the BSC. She c/o shortness of breath and weak legs skilled nursing from recliner to the bathroom; stopped midway and used the BSC instead to void. Bowel care has been given today: dulcolax CA as well as Miralax, but not BM yet.
--- NOTE | 2023-09-29 14:02 | NUR ---
Applied hyaluronidase to 5 areas as prescribed, circumscribed around the affected area of amiodarone infiltration. Pt tolerated well. Applied warm dry compress to the area and pt was positioned to her left side. She states some relief. HOB elevated to comfort level of pt.
[2023-09-30 03:21] VITALS: BP 132/69
[2023-09-30] MEDS ORDERED: Levothyroxine Sodium 0.175 MG TAB PO SCH (06:00)
--- NOTE | 2023-09-30 06:03 | NUR ---
1915 Assumed care of pt, bedside report completed. Shift plan of care reviewed with pt, all questions answered. 0253 Pt had been 100% atrially paced throughout shift. While up to BSC at this time, pt flipped back into Atrial Fib, rate 90-110 bpm with occasional paced beats. VSS and pt does report feeling more "woozy" but also reports she has been feeling that way off and on throughout the day. Pt appeared to have slept well this shift. Up to [facility] with one assist and FWW. Pt needs consistent encouragement to perform ADLs as able, including repositioning self in bed. Pt able to assist staff in repositioning when encouraged. Turning side to side as pt has reddened coccyx and gluteal fold, blanchable. Repeatedly denies pain, able to make needs known. Please see full assessment for additional details. No further complaints or concerns at this time, will continue to monitor.
[2023-09-30 07:54] VITALS: BP 121/104
[2023-09-30] MEDS ORDERED: Metoprolol Succinate 25 MG TABCR PO ONE (08:15)
[2023-09-30] MEDS ORDERED: Metoprolol Succinate 50 MG TABCR PO SCH (09:00)
[2023-09-30] MEDS ORDERED: Polyethylene Glycol 3350 17 gm PO SCH (09:00)
[2023-09-30 11:39] VITALS: BP 109/49
[2023-09-30 16:17] VITALS: BP 131/108
--- NOTE | 2023-09-30 17:55 | NUR ---
CARE ASSUMPTION: THIS RN ASSUMED CARE AT 1700. PATIENT LAYING IN BED UPON ASSUMPTION OF CARE, ALERT AND ORIENTED. DENIES PAINS/NEEDS. TELE SHOWING AFIB WITH HR 90'S. LUNGS SOUNDS CLEAR ON ROOM AIR, PER REPORT PATIENT NEEDING 1L WHEN SLEEPING. DENIES ABDOMINAL PAIN. PATIENT STATES SHE STARTED HAVING SMALL BOWEL MOVEMENTS AFTER BEING CONSTIPATED FOR DAYS. UP TO CHAIR FOR DINNER AND REMAINS IN RECLINER AT THIS TIME. IV SALINE LOCKED. CALL LIGHT IN REACH. DENIES NEEDS.
[2023-09-30 19:19] VITALS: BP 116/99
[2023-09-30 23:28] VITALS: BP 129/79
[2023-10-01 03:54] VITALS: BP 150/91
[2023-10-01 04:21] LABS: Bun/Creatinine Ratio 43.1 (12.0-20.0); Calcium, Blood 8.8 mg/dL (8.5-10.1); Creatinine, Blood 0.51 mg/dL (0.40-1.00); Potassium, Blood 4.4 mmol/L (3.5-5.5)
--- NOTE | 2023-10-01 05:30 | NUR ---
1915 Assumed care of pt, bedside report completed. Shift plan of care reviewed with pt, all questions answered. Pt anxious regarding HR throughout shift. HR at rest 70-80s and 90-110 with activity. Pt with uneventful shift, up to BSC to void with 1 person assist and FWW. Pt need much encouragement to mobilize self in bed and out of bed as much as possible as pt reports she is ambulatory at home. Egg crate on bed for comfort and pressure ulcer prevention, though it may be hindering her ability to self mobilize in bed as she reports the egg crate material makes it difficult to move. Pr report at home she gets from hospital bed to BSC ad sanchez and ambulates from living elena to bedroom/bathroom ad sanchez. PT/OT involved to preserve mobility. Encourage up to chair for meals. Please see full assessment for additional details. No further complaints or concerns at this time, will continue to monitor.
[2023-10-01 07:18] VITALS: BP 112/51
--- NOTE | 2023-10-01 07:30 | NUR ---
AM NOTE: PATIENT ALERT AND ORIENTED, LAYING IN BED AT THIS TIME. PERRLA. DENIES NUMBNESS/TINGLING. ABLE TO MOVE ALL EXTREMITIES AND FOLLOW COMMANDS. OVERALL WEAKNESS. UP TO [facility] FOR MEALS. TURNING Q2 FOR REDNESS ON BOTTOM. AT TIMES PATIENT NEEDING HELP TURNING IN BED DUE TO EGGCRATE ON MATTRESS. ON 1L NASAL CANNULA WHEN SLEEPING DUE TO DESATING TO 78% FOR BRIEF PERIODS. ON ROOM AIR WHILE AWAKE, SATING MID 90'S. LUNGS SOUNDING CLEAR. DENIES SOB/COUGH. EVEN AND UNLABORED RESPIRATIONS. TELE SHOWING AFIB WITH ATRIAL PACED. AT REST HR 70-80'S. WITH ACTIVITY HR UP TO 120'S. DENIES CHEST PAIN/PRESSURE/PALPITAIONS. MINIMAL EDEMA TO BLE. IV SALINE LOCKED. PPP. DENIES ABDOMINAL PAIN/NAUSEA. STATES SHE IS STILL FEELING SLIGHTLY CONSTIPATED. PATIENT ENCOURAGED TO MOVE AROUND MORE AND WALK WITH STAFF THIS SHIFT. ATTENDS IN PLACE. RED COCCYX, SKIN INTACT. AM VITALS STABLE. CALL LIGHT IN REACH. DENIES NEEDS AT THIS TIME.
[2023-10-01] MEDS ORDERED: FURO20 PO (09:49)
[2023-10-01] MEDS ORDERED: METO50ER PO (09:53)
[2023-10-01] MEDS ORDERED: MIRALAX17 GM PO (09:53)
[2023-10-01] MEDS ORDERED: FT SENNA-S 8.61 EACH PO (09:54)
[2023-10-01] MEDS ORDERED: EUTHYROX175 MCG PO (09:54)
[2023-10-01] MEDS ORDERED: LOSA25 PO (09:55)
--- NOTE | 2023-10-01 11:19 | NUR ---
DISCHARGE: NO ACUTE CHANGES. VITAL SIGNS STABLE. SON TERESITA IN TO CLAY ARTIST PATIENT. MEDS FAXED TO [facility]. DISCHARGE EDUCATION INCLUDING AFIB, BLOOD THINNERS, NEW MEDICATIONS, FOLLOW UP APPOINTMENT, TSH LAB, OUTPATIENT SLEEP STUDY, SIGNS AND SYMPTOMS OF WHEN TO RETURN AND OVERALL SAFETY WERE TAUGHT BY THIS RN. PATIENT LEFT UNIT VIA WHEELCHAIR WITH ALL PERSONAL BELONGINGS.
== END 2023-10-01 11:14 | disposition home health service (06) | DRG 291 ==
LOC: ER 13:20 → PCU 13:21 → ERHOLD 13:21 → PCU 18:03 → MEDS 09-26 15:48 → PCU 09-28 11:19
PROVIDERS: Internal Medicine; Student in an Organized Health Care Education/Training Program; ADMIT Hospitalist
DX: I11.0 Hypertensive heart disease with heart failure (principal); I50.23 Acute on chronic systolic (congestive) heart failure; J96.01 Acute respiratory failure with hypoxia; I48.19 Other persistent atrial fibrillation; I69.354 Hemiplegia and hemiparesis following cerebral infarction affecting left non-dominant side; I48.92 Unspecified atrial flutter; E11.9 Type 2 diabetes mellitus without complications; E03.9 Hypothyroidism, unspecified; I49.5 Sick sinus syndrome; E78.5 Hyperlipidemia, unspecified; I95.9 Hypotension, unspecified; Z95.0 Presence of cardiac pacemaker; Z79.84 Long term (current) use of oral hypoglycemic drugs; Z79.890 Hormone replacement therapy; Z79.01 Long term (current) use of anticoagulants
CPT/HCPCS: 0241U; 36415; 71046; 80048; 80053; 82947; 83036; 83735; 83880; 84100; 84439; 84443; 84484; 85014; 85018; 85025; 85027; 93005; 93010; 93306; 94761; 94762; 96374; 96375; 97110; 97116; 97162; 97165; 97530; 97530-CQ; 97535; 99285-25; A9270; G0378; J0282; J1940; J3470; J7060